=== PATIENT | female | born 2000 | race Two or more races ===

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

== ENCOUNTER → 2023-04-12 | Outpatient (CLI) | payer MEDICAID ==
[~2023-04-12] MED LIST: IBUP-1456 PO
[2023-04-12 12:59] LABS: Basophils # (auto) 0 10 ^3/uL (0-0.2); Basophils % (auto) 0.2 % (0.0-2.0); Eosinophils # (auto) 0.2 10 ^3/uL (0-0.8); Hematocrit 39.7 % (36.0-46.0); Hemoglobin 13.3 g/dL (12.2-16.2); Lymphocytes # (auto) 1.1 10 ^3/uL (0.4-5.4); Lymphocytes % (auto) 17.2 % (10.0-50.0); Mean Corpuscular Hemoglobin 29.7 pg (28.0-32.0); Mean Corpuscular Hgb Conc. 33.6 g/dL (32.0-36.0); Mean Corpuscular Volume 88.4 fL (80.0-100.0); Monocytes # (auto) 0.3 10 ^3/uL (0-1.3); Neutrophils # (auto) 4.7 10 ^3/uL (1.6-8.6); Neutrophils % (auto) 74.6 % (37.0-80.0); Red Blood Cells 4.49 10^6/uL (4.0-5.20); Red Cell Distribution Width 14.5 % (11.8-14.3); White Blood Cell 6.4 10^3/uL (4.4-10.8)
[2023-04-12 13:07] LABS: Amphetamine Screen, Urine Neg (NEGATIVE)
[2023-04-12 13:08] LABS: Benzodiazephine Screen, Urine Neg (NEGATIVE)
[2023-04-12 13:09] LABS: Barbiturate Scree,Urine Neg (NEGATIVE); Cannabinoid Screen, Urine Neg (NEGATIVE); Cocaine Screen, Urine Neg (NEGATIVE); Opiate Scree,Urine Neg (NEGATIVE); Phencyclidine Screen, Urine Neg (NEGATIVE)
[2023-04-13 08:06] LABS: RPR Non Reactive (Non Reactive)
[2023-04-14 14:06] LABS: QuantiFERON-TB Gold Plus Negative (Negative)
== END | disposition home or self-care (01) ==
LOC: LAB 12:12
PROVIDERS: ATTEND Obstetrics & Gynecology
DX: Z34.00 Encounter for supervision of normal first pregnancy, unspecified trimester (principal); Z31.430 Encounter of female for testing for genetic disease carrier status for procreative management; N39.0 Urinary tract infection, site not specified; Z20.01 Contact with and (suspected) exposure to intestinal infectious diseases due to Escherichia coli (E. coli)
CPT/HCPCS: 36415; 80307; 83036; 84144; 84702; 85025; 86592; 86703; 86762; 86850; 86900; 86901; 87086; 87340

== ENCOUNTER → 2023-08-02 | Outpatient (CLI) | payer MEDICAID ==
[2023-08-02 11:40] LABS: Basophils # (auto) 0 10 ^3/uL (0-0.2); Basophils % (auto) 0.3 % (0.0-2.0); Eosinophils # (auto) 0.2 10 ^3/uL (0-0.8); Eosinophils % (auto) 1.9 % (0.0-7.0); Hematocrit 33.1 % (36.0-46.0); Hemoglobin 10.9 g/dL (12.2-16.2); Lymphocytes # (auto) 2.2 10 ^3/uL (0.4-5.4); Lymphocytes % (auto) 20.6 % (10.0-50.0); Mean Corpuscular Hemoglobin 28.7 pg (28.0-32.0); Mean Corpuscular Hgb Conc. 33.1 g/dL (32.0-36.0); Mean Corpuscular Volume 86.7 fL (80.0-100.0); Monocytes # (auto) 0.7 10 ^3/uL (0-1.3); Monocytes % (auto) 6.6 % (0.0-12.0); Neutrophils # (auto) 7.6 10 ^3/uL (1.6-8.6); Neutrophils % (auto) 70.6 % (37.0-80.0); Red Blood Cells 3.81 10^6/uL (4.0-5.20); Red Cell Distribution Width 14.2 % (11.8-14.3); White Blood Cell 10.7 10^3/uL (4.4-10.8)
== END | disposition home or self-care (01) ==
LOC: LAB 11:23
PROVIDERS: ATTEND Obstetrics & Gynecology
DX: Z34.80 Encounter for supervision of other normal pregnancy, unspecified trimester (principal); Z3A.00 Weeks of gestation of pregnancy not specified
CPT/HCPCS: 36415; 82951; 83036; 85025

== ENCOUNTER 2023-09-11 19:45 | Observation (INO) | payer MEDICAID ==
[~2023-09-11] VITALS: Ht 170.2 cm; Wt 73.0 kg
[2023-09-11] MEDS: TERBUTALINE SULFATE 1 MG/ML 1ML VIAL SC ONE (20:25)
[2023-09-11] MEDS: LACTATED RINGER'S 1,000 ML IV ONE (21:11)
[2023-09-11] MEDS: TERBUTALINE SULFATE 1 MG/ML 1ML VIAL SC SCH (21:29)
[2023-09-11] MEDS: BETAMETHASONE ACET (30mg/5ml) 5ml Vial 6mg/ml IM ONE (21:45)
[2023-09-11] MEDS: NIFEdipine 10 MG CAP PO SCH (22:16)
== END 2023-09-11 22:34 | disposition home or self-care (01) ==
LOC: LDRP 19:45
PROVIDERS: ADMIT Obstetrics & Gynecology; ATTEND Obstetrics & Gynecology
DX: O62.9 Abnormality of forces of labor, unspecified (principal); O99.891 Other specified diseases and conditions complicating pregnancy; M54.9 Dorsalgia, unspecified; Z3A.34 34 weeks gestation of pregnancy; Z88.6 Allergy status to analgesic agent
CPT/HCPCS: 59025; 76805; 76817; 81002; 94760; 96360; 96361; 96372; G0378; J0702; J3105

== ENCOUNTER 2023-10-20 11:09 | Observation (INO) | payer MEDICAID | END 2023-10-20 12:58 | disposition home or self-care (01) | LOC: UNDOADMOB 11:09 → LDRP 11:09 → UNDODISOB 12:58 | PROVIDERS: ADMIT Obstetrics & Gynecology; ATTEND Obstetrics & Gynecology | DX: O48.0 Post-term pregnancy (principal); Z3A.40 40 weeks gestation of pregnancy | CPT/HCPCS: 59025; 76818; 81002; 94760; G0378 ==

== ENCOUNTER 2023-10-22 11:12 | Observation (INO) | payer MEDICAID ==
[2023-10-22] MEDS ORDERED: PREN-96 PO (12:28)
== END 2023-10-22 12:38 | disposition home or self-care (01) ==
LOC: LDRP 11:12
PROVIDERS: ADMIT Obstetrics & Gynecology; ATTEND Obstetrics & Gynecology
DX: O48.0 Post-term pregnancy (principal); Z3A.40 40 weeks gestation of pregnancy; Z88.6 Allergy status to analgesic agent
CPT/HCPCS: 59025; 76818; 81002; 94760; G0378

== ENCOUNTER 2023-10-24 19:55 | Inpatient (IN) | payer MEDICAID ==
[~2023-10-24] VITALS: Ht 170.2 cm; Wt 75.7 kg
[~2023-10-24 19:55] MED LIST changes: +PREN-96 PO
[2023-10-24] MEDS ORDERED: LIDOCAINE 2%HCL (LOCAL ANESTH.) INJ 20ML MDV IJ PRN (20:30)
[2023-10-24] MEDS ORDERED: BUTORPHANOL TARTRATE 2 MG/1 ML VIAL IV PRN (20:30)
[2023-10-24 21:01] LABS: Basophils # (auto) 0 10 ^3/uL (0-0.2); Basophils % (auto) 0.4 % (0.0-2.0); Lymphocytes # (auto) 1.1 10 ^3/uL (0.4-5.4); Mean Corpuscular Hemoglobin 25.8 pg (28.0-32.0); Monocytes # (auto) 0.6 10 ^3/uL (0-1.3); Monocytes % (auto) 6.7 % (0.0-12.0)
[2023-10-24 21:03] LABS: Eosinophils # (auto) 0.2 10 ^3/uL (0-0.8); Eosinophils % (auto) 1.8 % (0.0-7.0); Hematocrit 32.7 % (36.0-46.0); Mean Corpuscular Hgb Conc. 33.8 g/dL (32.0-36.0); Mean Corpuscular Volume 76.2 fL (80.0-100.0); Neutrophils # (auto) 6.8 10 ^3/uL (1.6-8.6); Neutrophils % (auto) 78.1 % (37.0-80.0); Platelet Count (auto) 206 10^3/uL (140-450); Red Blood Cells 4.29 10^6/uL (4.0-5.20); White Blood Cell 8.7 10^3/uL (4.4-10.8)
[2023-10-24 21:08] LABS: Alanine Aminotransferase 15 U/L (7-40); Albumin 3.7 g/dL (3.2-4.8); Alkaline Phosphatase 261 U/L (46-116); Anion Gap 10 (5-15); Aspartate Aminotransferase 12 U/L (13-40); Bilirubin, Total 0.4 mg/dL (0.2-1.0); Blood Urea Nitrogen 8 mg/dL (9-23); Calcium 9.2 mg/dL (8.7-10.4); Carbon Dioxide 17 mmol/L (20-30); Chloride 109 mmol/L (98-107); Glucose 89 mg/dL (74-106); Sodium 136 mmol/L (136-145); Total Protein 6.4 g/dL (5.7-8.2)
[2023-10-24 21:42] LABS: INR 0.89 (0.9-1.15); Partial Thromboplastin Time 26.9 SEC (24.5-34.5); Prothrombin Time 9.7 sec (9.3-11.8)
[2023-10-24] MEDS: LACTATED RINGER'S 1,000 ML IV SCH (21:51)
[2023-10-24 23:59] LABS: Urine Bacteria None Seen /hpf (None Seen)
[2023-10-25] MEDS: miSOPROStol 50 MCG per PRE-CUT 1/2 TAB PO PRN
[2023-10-25 00:11] LABS: Urine Blood Negative /uL (Negative); Urine Clarity Clear (Clear); Urine Color Yellow (Yellow); Urine Mucus FEW (None Seen); Urine Protein, UAD 1+ (Negative); Urine Specific Gravity 1.034 (1.001-1.035); Urine Urobilinogen 2 mg/dL (Negative); Urine WBC 1 /hpf (0 - 5)
[2023-10-25 00:20] LABS: Amphetamine Screen, Urine Neg (NEGATIVE)
[2023-10-25 00:21] LABS: Barbiturate Scree,Urine Neg (NEGATIVE); Benzodiazephine Screen, Urine Neg (NEGATIVE); Cannabinoid Screen, Urine Neg (NEGATIVE); Cocaine Screen, Urine Neg (NEGATIVE); Opiate Scree,Urine Neg (NEGATIVE); Phencyclidine Screen, Urine Neg (NEGATIVE)
[2023-10-25] MEDS: BUTORPHANOL TARTRATE 2 MG/1 ML VIAL IV PRN (04:44)
[2023-10-25] MEDS ORDERED: ePHEDrine SULFATE 50 MG/ML AMP IV ONE ×2 (06:30)
[2023-10-25] MEDS ORDERED: NALOXONE HCL 0.4 MG/ML VIAL IV ONE (06:30)
[2023-10-25] MEDS: LACTATED RINGER'S 1,000 ML IV ONE (06:43)
[2023-10-25] MEDS: DERMOPLAST 60ML BOTTLE TOP PRN (08:51)
[2023-10-25] MEDS: WITCH HAZEL-GLYCERIN PAD TOP PRN (08:52)
[2023-10-25] MEDS: PHISODERM TOP SOLN 240ML BTL TOP PRN (08:52)
[2023-10-25] MEDS: ROPIVACAINE HCL 200 ML ONE (08:55)
[2023-10-25] MEDS: LACT. RINGERS/OXYTOCIN 20UNITS 500 ML IV ONE ×2 (11:22→11:23)
[2023-10-25] MEDS: METHYLERGONOVINE MALEATE 0.2 MG/ML AMP IM ONE (11:28)
[2023-10-25] MEDS ORDERED: IBUPROFEN 600 MG TAB PO PRN (12:30)
[2023-10-25] MEDS: ONDANSETRON ODT 4 MG TAB PO PRN (13:27)
[2023-10-25] MEDS: ACETAMINOPHEN 325 MG TAB PO PRN (13:32)
[2023-10-25 19:00] VITALS: BP 99/55; PULSE 52; RESP 16; TEMP 97.9; O2SAT 96
[2023-10-25] MEDS ORDERED: DOCU-265 PO (21:37)
[2023-10-25] MEDS ORDERED: ACET-1882 PO (21:37)
[2023-10-25] MEDS: DOCUSATE SOD 100 MG CAP PO SCH (21:58)
[2023-10-25 23:30] VITALS: BP 110/56; PULSE 60; RESP 16; TEMP 98.2; O2SAT 96
[2023-10-26 03:15] VITALS: BP 135/75; PULSE 56; RESP 18; TEMP 97.9; O2SAT 97
[2023-10-26] MEDS: HYDROcodone-ACET 5/325MG TAB PO PRN (03:39)
[2023-10-26 07:00] VITALS: BP 100/68; PULSE 57; RESP 16; TEMP 98; O2SAT 96
[2023-10-26 08:40] LABS: Basophils # (auto) 0 10 ^3/uL (0-0.2); Basophils % (auto) 0.4 % (0.0-2.0); Eosinophils # (auto) 0.1 10 ^3/uL (0-0.8); Hemoglobin 10.4 g/dL (12.2-16.2); Lymphocytes # (auto) 1.9 10 ^3/uL (0.4-5.4); Monocytes # (auto) 0.8 10 ^3/uL (0-1.3); Nucleated Red Blood Cells % 0.1 %
[2023-10-26 08:42] LABS: Eosinophils % (auto) 1.5 % (0.0-7.0); Hematocrit 31.1 % (36.0-46.0); Lymphocytes % (auto) 21.6 % (10.0-50.0); Mean Corpuscular Hemoglobin 26.1 pg (28.0-32.0); Mean Corpuscular Hgb Conc. 33.7 g/dL (32.0-36.0); Mean Corpuscular Volume 77.6 fL (80.0-100.0); Monocytes % (auto) 8.5 % (0.0-12.0); Platelet Count (auto) 177 10^3/uL (140-450); Red Cell Distribution Width 15.9 % (11.8-14.3); White Blood Cell 8.8 10^3/uL (4.4-10.8)
[2023-10-26 11:00] VITALS: BP 111/70; PULSE 53; RESP 17; TEMP 97.5; O2SAT 96
[2023-10-26 11:07] LABS: RPR Non Reactive (Non Reactive)
[2023-10-26] MEDS ORDERED: ASCO500T11 PO (13:37)
[2023-10-26] MEDS ORDERED: FER325T PO (13:37)
== END 2023-10-26 13:35 | disposition home or self-care (01) | DRG 560 ==
LOC: INTOOBSV 19:55 → LDRP 19:55 → OBSVTOIN 20:20 → LDRP 22:30
PROVIDERS: ADMIT Obstetrics & Gynecology; ATTEND Obstetrics & Gynecology
PROC: 10E0XZZ Delivery of Products of Conception, External Approach (ICD-10-PCS; principal; 2023-10-25)
PROC: 3E0DXGC Introduction of Other Therapeutic Substance into Mouth and Pharynx, External Approach (ICD-10-PCS; 2023-10-25)
PROC: 0UQMXZZ Repair Vulva, External Approach (ICD-10-PCS; 2023-10-25)
PROC: 0KQM0ZZ Repair Perineum Muscle, Open Approach (ICD-10-PCS; 2023-10-25)
PROC: 3E0R3BZ Introduction of Anesthetic Agent into Spinal Canal, Percutaneous Approach (ICD-10-PCS; 2023-10-25)
PROC: 00HU33Z Insertion of Infusion Device into Spinal Canal, Percutaneous Approach (ICD-10-PCS; 2023-10-25)
DX: O48.0 Post-term pregnancy (principal); Z37.0 Single live birth; O70.1 Second degree perineal laceration during delivery; O71.82 Other specified trauma to perineum and vulva; Z3A.40 40 weeks gestation of pregnancy; Z88.6 Allergy status to analgesic agent
CPT/HCPCS: 36415; 59200; 59409; 62282; 80053; 80307; 81001; 81002; 85025; 85610; 85730; 86592; 86803; 86850; 86900; 86901; 94760; 94762; 96360; 96361; 96365; 96366; 96372; 96374; G0378; J2590; Q0162